=== PATIENT | male | born 1975 | race Caucasian/White ===

== ENCOUNTER 2016-10-06 16:20 | Emergency (ER) | payer OTHER ==
--- NOTE | ~2016-10-06 | CR181 ---
[facility] A Service of [facility] RADIOLOGY TEXT RESULTS PATIENT: STEPHANE KOENIG LOCATION: [facility] : 71 UNIT #: [id number] AGE: [address]: Norberto Marquez MD SEX: M ORDER DR: [id number] [address] [place], [place] [address] [id number] MR#: [id number] #: [id number] NAME: STEPHANE KOENIG. : 1975 SEX: M STUDY DATE/TIME: 10/06/2016 15:36 UNIT: [facility] ROOM: STUDY DESCRIPTION: CR Lumbar Spine 2 or 3 Views Attending Physician: Norberto Marquez M.D. Ordering Physician: Norberto Marquez M.D. MEDICAL IMAGING REPORT This report is preliminary unless electronic signature is present EXAM Lumbar spine series 10/06/2016 COMPARISON STUDIES None. HISTORY Low back pain today. Patient overdosed on heroin. FINDINGS Three views of the lumbar spine were obtained. AP and lateral projections of the lumbar segment show good mineralization of both anterior and posterior elements. They are all anatomically normal without indication of fracture, dislocation, or malignant change of a sclerotic or lytic type. There is no congenital defect noted. The sacroiliac joints are normal. There appears to be mild loss of L5-S1 disc height, which could be related to congenital variation. Mild degenerative disc disease is in the differential consideration. IMPRESSION Normal lumbar spine. Dictated by... Francheska Rodriguez M.D. THIS IS AN ELECTRONICALLY VERIFIED REPORT Francheska Rodriguez M.D. at 10/08/2016 10:27 AM CPR/pcl [facility] A Service [facility] RADIOLOGY TEXT RESULTS PATIENT: STEPHANE KOENIG LOCATION: [facility] : 71 UNIT #: [id number] AGE: [address]: Norberto Marquez MD SEX: M ORDER DR: TD: 10/06/2016 21:35 JOB #: [id number] MEDICAL IMAGING REPORT COPY
== END 2016-10-06 17:32 | disposition home or self-care (01) ==
LOC: CED 16:20
DX: T40.1X1A Poisoning by heroin, accidental (unintentional), initial encounter (principal); S39.012A Strain of muscle, fascia and tendon of lower back, initial encounter; F19.10 Other psychoactive substance abuse, uncomplicated; F17.210 Nicotine dependence, cigarettes, uncomplicated; W19.XXXA Unspecified fall, initial encounter
CPT/HCPCS: 36415; 72100; 99283; J2310